=== PATIENT | female | born 1955 | race Caucasian/White ===

== ENCOUNTER 2016-08-16 19:47 | Emergency (ER) | payer MEDICARE ==
[2016-08-16] MEDS ORDERED: SODIUM CHLORIDE 0.9% 2,000 ML ONE (21:36)
[2016-08-16] MEDS ORDERED: ONDANSETRON 4 MG VIAL ONE (21:36)
[2016-08-16] MEDS ORDERED: FAMOTIDINE 20 MG INJ ONE (21:44)
[2016-08-16] MEDS ORDERED: ALU/MAG/SIM 30 ML UDC ONE (21:44)
[2016-08-16] MEDS ORDERED: DILAUDID 1 MG/ML AMP ONE ×2 (21:44→23:22)
[2016-08-16] MEDS ORDERED: humuLIN REG INSULIN ONE (23:21)
== END 2016-08-17 01:21 | disposition home or self-care (01) ==
LOC: ER 19:47
DX: K29.70 Gastritis, unspecified, without bleeding (principal); Z79.899 Other long term (current) drug therapy; F17.210 Nicotine dependence, cigarettes, uncomplicated
CPT/HCPCS: 36415 ×2; 80053 ×2; 81001 ×2; 82947 ×2; 83690 ×2; 85025 ×2; 87040 ×2; 87077 ×2; 87088 ×2; 87186 ×2; 96361; 96372; 96374; 96375; 96376; J1170; J2405

== ENCOUNTER 2016-08-20 15:21 | Inpatient (IN) | payer MEDICARE ==
[~2016-08-20] VITALS: Ht 157.5 cm; Wt 67.7 kg
[2016-08-20] MEDS ORDERED: OPTIRAY 350 100 ML VIAL HMH IV ONE (15:22)
[2016-08-20] MEDS ORDERED: SODIUM CHLORIDE 0.9% 1,000 ML ONE (16:27)
[2016-08-20] MEDS ORDERED: ONDANSETRON 4 MG VIAL ONE (16:27)
[2016-08-20] MEDS ORDERED: DILAUDID 1 MG/ML AMP ONE (16:27)
[2016-08-20] MEDS ORDERED: ALU/MAG/SIM 30 ML UDC ONE (16:46)
[2016-08-20] MEDS ORDERED: humuLIN REG INSULIN ONE (16:46)
[2016-08-20] MEDS ORDERED: LIDOCAINE 2% VISC 15 ML UDC ONE (16:46)
[2016-08-20] MEDS ORDERED: SODIUM CHLORIDE 0.9% 100 ML IV ONE (19:05)
[2016-08-20] MEDS ORDERED: CEFTRIAXONE 1 GM VIAL ONE (19:05)
[2016-08-20] MEDS ORDERED: FAMOTIDINE 20 MG INJ ONE (19:42)
[2016-08-20] MEDS ORDERED: ALU/MAG/SIM 30 ML UDC PO PRN (19:50)
[2016-08-20] MEDS ORDERED: MAG HYDROX 30 ML UDC PO PRN (19:50)
[2016-08-20] MEDS ORDERED: DEXTROSE 50% SYRINGE 50 ML IV PRN (19:50)
[2016-08-20] MEDS ORDERED: GLUCAGON 1 MG VIAL IM PRN (19:50)
[2016-08-20] MEDS ORDERED: BISACODYL EC 5 MG TAB PO PRN (19:50)
[2016-08-20] MEDS ORDERED: BISACODYL 10 MG SUPP RECTAL PRN (19:50)
[2016-08-20] MEDS ORDERED: SALINE FLUSH 10 ML FLUSH PRN (19:50)
[2016-08-20] MEDS ORDERED: ACETAMINOPHEN 325 MG TAB PO PRN (19:50)
[2016-08-20 21:50] VITALS: BP_SYST 150; BP_SYST 154; RESP 20; TEMP 98.5; Ht 157.5 cm; Wt 67.7 kg
[2016-08-20] MEDS: SODIUM CHLORIDE 0.9% 1,000 ML IV SCH (22:15)
[2016-08-20] MEDS: ONDANSETRON 4 MG VIAL IV PRN (22:18)
[2016-08-20] MEDS: MORPHINE 2 MG/ML SYR IV PRN (22:21)
[2016-08-20] MEDS: SALINE FLUSH 10 ML FLUSH SCH (22:37)
[2016-08-20 23:00] VITALS: RESP 18
[2016-08-20] MEDS: PIPERACIL/TAZO 3.375GM/50ML 50 ML IV SCH (23:29)
[2016-08-20] MEDS: SACCHA BOULARDII 250MG CAP PO SCH (23:29)
[2016-08-20] MEDS: SUCRALFATE 1GM/10ML SUSP PO SCH (23:29)
[2016-08-21] MEDS: MORPHINE 2 MG/ML SYR IV PRN ×4 (02:25→19:55)
[2016-08-21] MEDS: ONDANSETRON 4 MG VIAL IV PRN ×4 (02:25→19:44)
[2016-08-21 03:00] VITALS: BP_SYST 110; RESP 20; TEMP 98.4
[2016-08-21] MEDS: SODIUM CHLORIDE 0.9% FLUSH BAG 500 ML IV SCH (03:06)
[2016-08-21] MEDS: PIPERACIL/TAZO 3.375GM/50ML 50 ML IV SCH ×3 (06:21→17:53)
[2016-08-21] MEDS: SUCRALFATE 1GM/10ML SUSP PO SCH ×3 (06:21→15:27)
[2016-08-21] MEDS: SODIUM CHLORIDE 0.9% 1,000 ML IV SCH ×2 (06:33→16:24)
[2016-08-21 07:22] VITALS: BP_SYST 124; RESP 20; TEMP 98.2
[2016-08-21] MEDS: *HOME MEDS KEPT IN PHARMACY XX SCH ×2 (07:50→19:57)
[2016-08-21] MEDS: SALINE FLUSH 10 ML FLUSH SCH ×2 (08:12→19:44)
[2016-08-21] MEDS: PANTOPRAZOLE 40 MG VIAL IV SCH ×2 (08:12→21:36)
[2016-08-21] MEDS: SACCHA BOULARDII 250MG CAP PO SCH ×3 (08:12→21:36)
[2016-08-21] MEDS ORDERED: PANTOPRAZOLE 40 MG VIAL IV SCH (09:00)
[2016-08-21] MEDS: NICOTINE 21 MG/24 HR TRANSDERM SCH (09:27)
[2016-08-21 11:29] VITALS: BP_SYST 123; RESP 18; TEMP 98.2
[2016-08-21 14:58] VITALS: BP_SYST 126; RESP 20; TEMP 98.1
[2016-08-21] MEDS: PAROXETINE HCL 20 MG TAB PO SCH (15:27)
[2016-08-21] MEDS: Hydrocodone/APAP 10/325 MG TAB PO PRN (17:53)
[2016-08-21 19:30] VITALS: BP_SYST 141; RESP 20; TEMP 98.5
[2016-08-21 23:09] VITALS: BP_SYST 131; RESP 20; TEMP 98.8
[2016-08-22] VITALS (11 sets, daily range): BP systolic 126–168; RESP 16–20; TEMP 98–98.8
[2016-08-22] MEDS: Hydrocodone/APAP 10/325 MG TAB PO PRN ×3 (00:12→17:06)
[2016-08-22] MEDS: PIPERACIL/TAZO 3.375GM/50ML 50 ML IV SCH ×4 (00:12→18:08)
[2016-08-22] MEDS: SODIUM CHLORIDE 0.9% 1,000 ML IV SCH ×2 (02:13→11:09)
[2016-08-22] MEDS: MORPHINE 2 MG/ML SYR IV PRN ×3 (02:17→13:01)
[2016-08-22] MEDS: SODIUM CHLORIDE 0.9% FLUSH BAG 500 ML IV SCH (05:57)
[2016-08-22] MEDS: SUCRALFATE 1GM/10ML SUSP PO SCH ×3 (06:11→16:24)
[2016-08-22] MEDS: *HOME MEDS KEPT IN PHARMACY XX SCH ×2 (08:00→18:21)
[2016-08-22] MEDS: PAROXETINE HCL 20 MG TAB PO SCH (08:23)
[2016-08-22] MEDS: SACCHA BOULARDII 250MG CAP PO SCH ×2 (08:23→16:24)
[2016-08-22] MEDS: PANTOPRAZOLE 40 MG VIAL IV SCH (08:23)
[2016-08-22] MEDS: SALINE FLUSH 10 ML FLUSH SCH (08:23)
[2016-08-22] MEDS: NICOTINE 21 MG/24 HR TRANSDERM SCH (08:24)
[2016-08-22] MEDS ORDERED: LEVEMIR INSULIN SUBQ SCH (09:00)
[2016-08-22] MEDS: ONDANSETRON 4 MG VIAL IV PRN (11:16)
== END 2016-08-22 18:50 | disposition home or self-care (01) | DRG 690 ==
LOC: ENRESERVTM → ENRESERVDT → ER 15:21 → EMR 19:49 → ENPENDDIS 19:49 → 3NT 21:43
PROVIDERS: ADMIT Family Medicine Addiction Medicine; ATTEND Family Medicine Addiction Medicine
CPT/HCPCS: 36415; 36600; 74177; 76770; 80053; 81001; 82009; 82553; 82803; 82947; 83036; 83605; 83690; 84484; 84703; 85025; 85610; 85652; 85730; 86141; 86677; 87040; 87045; 87046; 87077; 87088; 87186; 87338; 87493; 93005; 94799; 96361; 96365; 96375; 99223; 99233; 99239